=== PATIENT | female | born 2000 | race Two or more races ===

== ENCOUNTER 2025-07-24 15:57 | Emergency (ER) | payer SELFPAY ==
[~2025-07-24] VITALS: Ht 157.5 cm; Wt 67.0 kg
--- NOTE | 2025-07-24 16:07 | ED.PDOC ---
GI ASSESSMENT HPI Comments 25 y/o F, presents to the ED for CC of nausea/vomiting. Patient states, she has been experiencing symptoms of nausea/vomiting sudden onset, this morning (07/24/25). Patient reports, emesis to have been "bloody" in appearance which was then followed by episodes of dry heaving. Patient endorses smoking marijuana and drinking alcohol on an empty stomach the night prior to commencement of symptoms. Patient denies headache, dizziness, melena, or faintness. No other symptoms or modifying factors are present at this time. Chief Complaint: Nausea/Vomiting Time Seen by MD: 16:00 Reviewed Notes: Nurses Notes, Medications, Allergies Allergies: Coded Allergies: Penicillins (Verified Allergy, Unknown, 07/24/25) Information Source: Patient Mode of Arrival: Wheelchair Timing: Hours Duration: Since onset Prehospital treatment: None Vomitus: Watery, Bloody Stool: Normal Severity: Moderate Recent: Ingestion of ETOH Recent Hx of: None Pain Location: None Modifying Factors: Nothing Associated sign and symptoms: Nausea, Vomiting Past Medical History PAST MEDICAL HISTORY: Denies Surgical History: Denies all surgeries HOME VISITOR History: Denies all HOME VISITOR Hx Family History Family History: Unknown Social History Smoker: Non-Smoker Alcohol: Occasionally Drugs: Marijuana Lives In: Home Constitutional: denies: chills, diaphoresis, fatigue, fever, malaise, sweats, weakness, others EENTM: denies: blurred vision, double vision, ear bleeding, ear discharge, ear drainage, ear pain, ear ringing, eye pain, eye redness, hearing loss, mouth pain, mouth swelling, nasal discharge, nose bleeding, nose congestion, nose pain, photophobia, tearing, throat pain, throat swelling, voice changes, others Respiratory: denies: cough, hemoptysis, orthopnea, SOB at rest, shortness of breath, SOB with excertion, stridor, wheezing, others Cardiovascular: denies: chest pain, dizzy spells, diaphoresis, Dyspnea on exertion, edema, irregular heart beat, left arm pain, lightheadedness, palpitations, PND, syncope, others Gastrointestinal: reports: nausea, vomiting; denies: abdomen distended, abdominal pain, blood streaked bowels, constipated, diarrhea, dysphagia, difficulty swallowing, hematemesis, melena, poor appetite, poor fluid intake, rectal bleeding, rectal pain, others Genitourinary: denies: abnormal vagina bleeding, burning, dyspareunia, dysuria, flank pain, frequency, hematuria, incontinence, pain, , vagina discharge, urgency, others Neurological: denies: dizziness, fainting, headache, left sided numbness, left sided weakness, numbness, paresthesia, pre-existing deficit, right sided numbness, right sided weakness, seizure, speech problems, tingling, tremors, weakness, others Musculoskeletal: denies: back pain, gout, joint pain, joint swelling, muscle pain, muscle stiffness, neck pain, others Integumetry: denies: bruises, change in color, change in hair/nails, dryness, laceration, lesions, lumps, rash, wounds, others Allergic/Immunocompromised: denies: Difficulty Healing, Frequent Infections, Hives, Itching, others Hematologic/Lymphatic: denies: anemia, blood clots, easy bleeding, easy bruising, swollen glands, others Endocrine: denies: excessive hunger, excessive sweating, excessive thirst, excessive urination, flushing, intolerance to cold, intolerance to heat, unexplained weight gain, unexplained weight loss, others Psychiatric: denies: anxiety, bipolar disorder, depression, hopeless, panic disorder, schizophrenia, sleepless, suicidal, others All Other Systems: Reviewed and Negative Physical Exam General Appearance: Moderate Distress HEENT: Normal ENT Inspection, Pharynx Normal, TMs Normal Neck: Full Range of Motion, Non-Tender, Normal, Normal Inspection Respiratory: Chest Non-Tender, Lungs Clear, No Accessory Muscle Use, No Respiratory Distress, Normal Breath Sounds Cardiovascular: No Edema, No JVD, No Murmur, No Gallop, Normal Peripheral Pulses, Regular Rate/Rhythm Breast Exam: Deferred Gastrointestinal: No Organomegaly, Non Tender, No Pulsatile Mass, Normal Bowel Sounds, Soft Genitalia: Deferred Pelvic: Deferred Rectal: Deferred Extremities: No calf tenderness, Normal capillary refill, Normal inspection, N ormal range of motion, Non-tender, No pedal edema Musculoskeletal : Apperance: Normal 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 Was a procedure done?: No GI differential Dx Differential Diagnosis: Constipation, Diverticular disease, Esophagitis, Gastritis/PUD, Gastroenteritis, Inflammatory BD, Electrolyte Imbalance, Food Poisoning, Bacterial, Viral X-Ray, Labs, Meds, VS Vital Signs Date Time Temp Pulse Resp B/P (MAP) Pulse Ox O2 Delivery O2 Flow Rate FiO2 07/24/25 16:02 97.7 109 16 139/87 98 97.7 Lab Test 07/24/25 16:20 Range/Units White Blood Count 6.4 4.4-10.8 10^3/uL Red Blood Count 4.47 4.0-5.20 10^6/uL Hemoglobin 14.1 12.2-16.2 g/dL Hematocrit 41.2 36.0-46.0 % Mean Corpuscular Volume 92.2 80.0-100.0 fL Mean Corpuscular Hemoglobin 31.5 28.0-32.0 pg Mean Corpuscular Hemoglobin Concent 34.1 32.0-36.0 g/dL Red Cell Distribution Width 12.7 11.8-14.3 % Platelet Count 199 140-450 10^3/uL Mean Platelet Volume 9.4 6.9-10.8 fL Neutrophils (%) (Auto) 59.2 37.0-80.0 % Lymphocytes (%) (Auto) 32.1 10.0-50.0 % Monocytes (%) (Auto) 7.7 0.0-12.0 % Eosinophils (%) (Auto) 0.4 0.0-7.0 % Basophils (%) (Auto) 0.6 0.0-2.0 % Neutrophils # (Auto) 3.8 1.6-8.6 10 ^3/uL Lymphocytes # (Auto) 2.0 0.4-5.4 10 ^3/uL Monocytes # (Auto) 0.5 0-1.3 10 ^3/uL Eosinophils # (Auto) 0 0-0.8 10 ^3/uL Basophils # (Auto) 0 0-0.2 10 ^3/uL Nucleated Red Blood Cells 0.1 % Sodium Level 139 136-145 mmol/L Potassium Level 3.9 3.5-5.1 mmol/L Chloride Level 103 98-107 mmol/L Carbon Dioxide Level 25 20-31 mmol/L Anion Gap 11 5-15 Blood Urea Nitrogen 9 9-23 mg/dL Creatinine 0.89 0.550-1.02 mg/dL Glomerular Filtration Rate Calc 93 >90 mL/min BUN/Creatinine Ratio 10.1 10.0-20.0 Serum Glucose 97 74-106 mg/dL Calcium Level 9.8 8.7-10.4 mg/dL Patient alert. Complaining of nausea vomiting after marijuana drinking. Vitals stable. Answering questions. Blood pressure abdomen is soft nontender. WBC within normal limits. Hemoglobin within normal limits. Physical examination pristine. Establish intravenous access. Was given fluids. No leg swelling. No shortness a breath. No chest pain. No acute process. Counseled patient on effects of drinking for 15 minutes. Was given prescription of Protonix. Explained to the patient. Was told to follow up with her primary care physician. Was told to come back if there is any problem. Time of 1ST Reevaluation: 16:30 Reevaluation 1ST: Unchanged Patient Education/Counseling: Diagnosis, Treatment Family Education/Counseling: No Family Present SEPSIS Sepsis Screen Physician Orders Urinalysis (07/24/25 16:13) Sodium Chloride 0.9% (07/24/25 16:15) Drug Screen (07/24/25 16:13) Vital Signs Date Time Temp Pulse Resp B/P (MAP) Pulse Ox O2 Delivery O2 Flow Rate FiO2 07/24/25 16:02 97.7 109 16 139/87 98 97.7 Laboratory Tests Test 07/24/25 16:20 White Blood Count 6.4 10^3/uL (4.4-10.8) Departure 1 Departure Time of Disposition: 17:03 Impression: Primary Impression: Gastritis Qualified Codes: K29.20 - Alcoholic gastritis without bleeding Disposition: 01 HOME / SELF CARE / HOMELESS Condition: Good e-Prescriptions Pantoprazole Sodium Sesquihydr (Protonix) 40 Mg Tab 40 MG PO DAILY for 5 Days, #5 TAB Prov: IVY KERNS MD 07/24/25 Discharged With: Self Critical Care Note Critical Care Time?: No Stability Stability form required: No Heart Score Heart Score: Heart Score Response (Comments) Value History N/A 0 EKG N/A 0 Age N/A 0 Risk Factors N/A 0 Troponin N/A 0 Total 0 I personally scribed for IVY KERNS MD ([email or web address]) on 07/24/25 at 16:07. Electronically submitted by Shu Blair ([email or web address]). I personally scribed for IVY KERNS MD ([email or web address]) on 07/24/25 at 16:23. Electronically submitted by Shu Blair ([email or web address]). IVY KERNS MD Jul 24, 2025 16:07
[2025-07-24 16:41] LABS: Hematocrit 41.2 % (36.0-46.0); Hemoglobin 14.1 g/dL (12.2-16.2); Mean Corpuscular Hemoglobin 31.5 pg (28.0-32.0); Mean Corpuscular Volume 92.2 fL (80.0-100.0); Nucleated Red Blood Cells % 0.1 %
[2025-07-24 16:48] LABS: Chloride 103 mmol/L (98-107); Potassium 3.9 mmol/L (3.5-5.1); Sodium 139 mmol/L (136-145)
[2025-07-24 16:49] LABS: Anion Gap 11 (5-15); Calcium 9.8 mg/dL (8.7-10.4); Carbon Dioxide 25 mmol/L (20-31)
[2025-07-24 16:54] LABS: BUN/Creatinine Ratio 10.1 (10.0-20.0); Blood Urea Nitrogen 9 mg/dL (9-23); Glucose 97 mg/dL (74-106)
[2025-07-24] MEDS ORDERED: PANT40TA2 PO (17:04)
[2025-07-24] MEDS: SODIUM CHLORIDE 0.9% 1,000 ML IV ONE (17:52)
[2025-07-24 18:28] VITALS: BP 112/70; PULSE 70; RESP 18; TEMP 98.6; O2SAT 98
== END 2025-07-24 17:47 | disposition home or self-care (01) ==
LOC: ER 15:57
DX: K29.70 Gastritis, unspecified, without bleeding (principal); F12.90 Cannabis use, unspecified, uncomplicated; Z88.0 Allergy status to penicillin
CPT/HCPCS: 36415; 80048; 85025; 96360; 99283; J7030; 90471